=== PATIENT | male | born 1970 | race Caucasian/White ===

== ENCOUNTER → 2016-07-23 | Outpatient (CLI) | payer BC ==
[~2016-07-23] MED LIST: IBUP-1428 PO
[2016-07-23 17:23] LABS: BASO % 0.4 %; BASO ABS # 0.03 K/uL (0-0.2); COMPLETE YES; EOS % 1.9 %; IG% 0.3 %; LYMPH % 28.9 %; LYMPH ABS # 1.94 K/uL (1.2-3.4); MEAN CELL VOLUME 95.7 fL (80-100); MEAN CORPUSCULAR HEMOGLOBIN 33.8 pg (25-34); MEAN CORPUSCULAR HGB CONC 35.3 g/dl (32-36); MEAN PLATELET VOLUME 10.2 fL (7.4-10.4); MONO % 8.6 %; NEUT % 59.9 %; PLATELET COUNT 242 K/uL (130-400); RED BLOOD COUNT 4.91 M/uL (4.7-6.1); WHITE BLOOD COUNT 6.72 K/uL (4.8-10.8)
[2016-07-23 17:36] LABS: ALT/SGPT 43 U/L (12-78); BLOOD UREA NITROGEN 15 mg/dl (7-18); BUN/CREATININE RATIO 16.4 (10-20); CALCIUM 8.7 mg/dl (8.5-10.1); CARBON DIOXIDE 30 mmol/L (21-32); CHLORIDE 107 mmol/L (98-107); GLUCOSE 85 mg/dl (70-99); SODIUM 140 mmol/L (136-145)
[2016-07-23 17:38] LABS: ALB/GLOB RATIO 1.1 (0.9-2); ALKALINE PHOSPHATASE 85 U/L (45-117); AST/SGOT 18 U/L (15-37); C-REACTIVE PROTEIN < 0.29 mg/dl (0-0.29)
== END | disposition home or self-care (01) ==
LOC: C.LABBFT 15:47
PROVIDERS: ATTEND Nurse Practitioner
DX: R19.7 Diarrhea, unspecified (principal); F32.9 Major depressive disorder, single episode, unspecified; R10.11 Right upper quadrant pain

== ENCOUNTER → 2016-07-24 | Outpatient (CLI) | payer BC ==
[2016-07-31 13:21] LABS: O&P SOURCE OTHER-STOOL
== END | disposition home or self-care (01) ==
LOC: C.LABSPEC 09:44
PROVIDERS: ATTEND Nurse Practitioner
DX: R19.7 Diarrhea, unspecified (principal)

== ENCOUNTER → 2016-07-29 | Outpatient (CLI) | payer BC ==
--- NOTE | 2016-07-29 08:15 | DIAGNOSTIC IMAGING REPORT ---
ABDOMINAL ULTRASOUND, RIGHT UPPER QUADRANT HISTORY: Continuous right upper quadrant pain. COMPARISON: None. FINDINGS: Hepatic echogenicity is increased. This is consistent with fatty infiltration with areas of sparing within the gallbladder fossa. There are no gallstones. There is no gallbladder wall thickening. The pancreas is sonographically normal. No biliary ductal dilatation is present. There is no right hydronephrosis. IMPRESSION: 1. No gallstones or biliary ductal dilatation. 2. Fatty infiltration of the liver. Electronically signed by: Deyvi Adam M.D. 07/29/2016 8:13 AM Dictated Date/Time: 07/29/2016 8:11 AM
== END | disposition home or self-care (01) ==
LOC: C.ULTR 07:15
PROVIDERS: ATTEND Nurse Practitioner
DX: R10.11 Right upper quadrant pain (principal)

== ENCOUNTER → 2016-08-21 | Outpatient (CLI) | payer BC ==
[~2016-08-21] MED LIST changes: +SINCALIDE INJ 2.2 MCG in SODIUM CHLORIDE 0.9% 100ML 100 ML IV SCH
--- NOTE | 2016-08-21 10:23 | DIAGNOSTIC IMAGING REPORT ---
NUCLEAR MEDICINE HEPATOBILIARY SCAN WITH EJECTION FRACTION ANALYSIS CLINICAL HISTORY: Right upper quadrant abdominal pain. Diarrhea. COMPARISON STUDY: Biliary ultrasound dated 07/29/2016 FINDINGS: The patient was injected with 5.5 mCi of technetium 99m Choletec. Anterior imaging was performed. The gallbladder was first visualized on the image. Hepatic excretion appeared unremarkable. At 1 hour, the patient was administered 2.2 mcg of sincalide utilizing a 30 minute intravenous infusion. The gallbladder ejection fraction was normal during 92%. There is normal passage of activity into small bowel. IMPRESSION: 1. Normal study. No evidence of cystic duct obstruction. Normal gallbladder ejection fraction of 92%. Electronically signed by: Stanton Roberson M.D. 08/21/2016 10:21 AM Dictated Date/Time: 08/21/2016 10:20 AM
== END | disposition home or self-care (01) ==
LOC: C.NUCL 07:49
PROVIDERS: ATTEND Nurse Practitioner
DX: R19.7 Diarrhea, unspecified (principal); R10.11 Right upper quadrant pain

== ENCOUNTER → 2016-10-14 | Outpatient (CLI) | payer BC ==
[~2016-10-14] MED LIST changes: +OPTIRAY 320 IV PRN; -SINCALIDE INJ 2.2 MCG in SODIUM CHLORIDE 0.9% 100ML 100 ML IV SCH
--- NOTE | 2016-10-14 08:46 | DIAGNOSTIC IMAGING REPORT ---
CT SCAN OF THE CHEST WITH IV CONTRAST CLINICAL HISTORY: Follow-up unspecified abnormal imaging study. COMPARISON STUDY: Chest radiograph dated 11/07/2015. TECHNIQUE: Following the IV administration of 92 cc of Optiray 320, CT scan of the thorax was performed from the thoracic inlet to the upper abdomen. Images are reviewed in the axial, sagittal, and coronal planes. IV contrast was administered without complication. CT DOSE: 810.98 mGy.cm FINDINGS: Thyroid: Imaged portions of the thyroid gland are normal in size and attenuation. Thoracic aorta: The thoracic aorta is normal in caliber and demonstrates standard 3-vessel arch anatomy. No dissection is seen. Pulmonary vasculature: The pulmonary trunk is normal in caliber. There are no filling defects identified in the central pulmonary vessels to indicate pulmonary embolus. Note that this examination was not protocoled for evaluation of the pulmonary arteries. Heart: The heart is normal in size and configuration, and without pericardial effusion. Lungs and pleural spaces: Mild emphysematous change is noted. There is no lobar consolidation or pleural effusion. The trachea and central airways are clear. There is diffuse centrilobular nodularity, with numerous tiny pulmonary nodules (1-2 mm) seen throughout both lungs. Linear atelectasis versus scarring is seen in the lingula. Mild diffuse peribronchial thickening is noted. Mediastinum: There is no mediastinal lymphadenopathy. Lulu: Clear. Axillae: There is no axillary lymphadenopathy. Upper abdomen: The liver is enlarged and steatotic. The spleen is mildly enlarged measuring 13.7 cm in length the adrenal glands are normal in appearance. Skeletal structures: No lytic or blastic bony lesions are seen. IMPRESSION: 1. There is no lobar consolidation or pleural effusion. 2. There is diffuse centrilobular nodularity with too numerous to count tiny pulmonary nodules scattered throughout both lungs. The appearance is nonspecific and carries a broad differential. Considerations include bronchiolitis, granulomatous/mycobacterial/fungal infection, hypersensitivity pneumonitis, respiratory bronchiolitis interstitial lung disease (RB-ILD), or possibly pulmonary vasculitis. Clinical correlation will be essential. 3. Mild emphysematous change is suggested. 4. Hepatomegaly and hepatic steatosis. 5. Mild splenomegaly. 6. There are no pathologically enlarged mediastinal or hilar lymph nodes. Electronically signed by: Daniel Ludwig M.D. 10/14/2016 8:45 AM Dictated Date/Time: 10/14/2016 8:36 AM
== END | disposition home or self-care (01) ==
LOC: C.CTS 06:50
PROVIDERS: ATTEND Internal Medicine Pulmonary Disease
DX: R91.8 Other nonspecific abnormal finding of lung field (principal); R16.0 Hepatomegaly, not elsewhere classified; K76.0 Fatty (change of) liver, not elsewhere classified

== ENCOUNTER → 2016-10-14 | Outpatient (CLI) | payer BC ==
[~2016-10-14] MED LIST changes: -OPTIRAY 320 IV PRN
[2016-10-20 20:17] LABS: ANTI-CENTROMERE AB <1.0 NEG AI (<1.0 NEG); ANTI-SS-A <1.0 NEG AI (<1.0 NEG); ANTI-SS-B <1.0 NEG AI (<1.0 NEG); ASPERGILLUS FUMIGATUS NEGATIVE (NEGATIVE); DNA ds CRITHIDIA NEGATIVE (NEGATIVE); M. FAENI (S. RECTIVIRGULA) NEGATIVE (NEGATIVE); PIGEON SERUM NEGATIVE (NEGATIVE); SACCHAROMONOSPORA VIRIDIS AB NEGATIVE (NEGATIVE); Sm Antibody <1.0 NEG AI (<1.0 NEG); THERMOACTINOMYCES CANDIDUS NEGATIVE (NEGATIVE); THERMOACTINOMYCES VULGARIS NEGATIVE (NEGATIVE)
== END | disposition home or self-care (01) ==
LOC: C.LAB1850 14:36
PROVIDERS: ATTEND Internal Medicine Pulmonary Disease
DX: R93.8 Abnormal findings on diagnostic imaging of other specified body structures (principal)